=== PATIENT | female | born 1945 | race Caucasian/White ===

== ENCOUNTER 2023-03-14 12:51 | Outpatient (RCR) | payer MEDICARE, OTHER, SELFPAY | END 2023-04-22 15:36 | disposition home or self-care (01) | LOC: HO.WCC 12:51 | PROVIDERS: PCP Internal Medicine; Referring Provider Podiatrist; Visit Provider Surgery | DX: Z09 Encounter for follow-up examination after completed treatment for conditions other than malignant neoplasm (principal); E11.9 Type 2 diabetes mellitus without complications; Z79.899 Other long term (current) drug therapy; Z86.31 Personal history of diabetic foot ulcer | CPT/HCPCS: 97597; 99212 ==

== ENCOUNTER 2023-05-30 10:51 | Outpatient (REF) | payer MEDICARE, OTHER, SELFPAY | END 2023-05-30 10:52 | disposition home or self-care (01) | LOC: HO.10HDL 10:51 | PROVIDERS: Visit Provider Otolaryngology | DX: L50.0 Allergic urticaria (principal) | CPT/HCPCS: 36415; 82785; 86003 ==

== ENCOUNTER 2025-04-29 09:00 | Outpatient (RCR) | payer MEDICARE, OTHER, SELFPAY | END 2025-04-29 16:32 | disposition home or self-care (01) | LOC: HO.WCC 09:00 | PROVIDERS: PCP Internal Medicine; Visit Provider Surgery Surgical Oncology | DX: E11.622 Type 2 diabetes mellitus with other skin ulcer (principal); L97.822 Non-pressure chronic ulcer of other part of left lower leg with fat layer exposed; C44.719 Basal cell carcinoma of skin of left lower limb, including hip; T81.89XA Other complications of procedures, not elsewhere classified, initial encounter; E11.22 Type 2 diabetes mellitus with diabetic chronic kidney disease; I13.0 Hypertensive heart and chronic kidney disease with heart failure and stage 1 through stage 4 chronic kidney disease, or unspecified chronic kidney disease; I50.9 Heart failure, unspecified; N18.9 Chronic kidney disease, unspecified; Z79.84 Long term (current) use of oral hypoglycemic drugs; Z86.718 Personal history of other venous thrombosis and embolism | CPT/HCPCS: 99213 ==

== ENCOUNTER 2025-07-14 08:46 | Outpatient (AMB) | payer MEDICARE, OTHER, SELFPAY ==
--- OUTSIDE RECORDS SUMMARY | 2024-05-07 04:00 | XMS_ITS ---
Author Organization [facility] Address [address] [place] [address] Care Team Providers Care Cheesemaker Name Role Phone Glen RIVERO, Sheyla Primary Care Provider Unavailabl Eris Arredondo Unavailable [phone] Encounters Encounter Location Date Provider Diagnosis [facility] [address] [place] [address] 05/07/2024 Eris Zhu Plan Of Treatment Next Appt Details Provider Name:Eris Zhu , 05/18/2026 08:30:00 AM, [address] [address], [place], [address], Progress Notes * Angela KIMDOB:[birth year] (80 yo F)Acc No.[id number]:05/07/2024 Progress Note Patient: Angela JUAREZ Provider: Silvio Zhu DPM :1945 A ge:78 Y S ex:Female Date:05/07/2024 Address:[address] [place] [address] [place], [place] [id number] Pcp:Sheyla Carroll MD Subjective: * Chief Complaints: * * Medical History: Objective: * Vitals: Assessment: Plan: * Treatment: * Images: * The named appointment provid er may or may not be the originator of this progress note, and it is not deemed complete until electronically signed by the appointment provider. Sign off status: Pending * Provider: Silvio Zhu DPM Date: 1 Generated for Trudy hobbs/Dov/Delfina on: 1 09/14/2024 09:15 AM EST
--- OUTSIDE RECORDS SUMMARY | 2024-10-27 05:15 | XMS_ITS ---
Author Organization [facility] Address [address] [place] [address] Care Team Providers Care Mine Inspector Federal Name Role Phone Glen RIVERO, Sheyla Primary Care Provider Unavailabl Eris Arredondo Unavailable [phone] REASON FOR VISIT seen sooner Encounters Encounter Location Date Provider Diagnosis [facility] [address] [place] [address] 10/27/2024 Eris Zhu Plan Of Treatment Next Appt Details Provider Name:Eris Zhu , 05/18/2026 08:30:00 AM, [address] [facility], [address] [facility], [place], [address], Progress Notes * Angela DURANDOB:[birth year] (80 yo F)Acc No.[id number]:10/27/2024 Progress Note Patient: Angela JUAREZ Provider: Silvio Zhu DPM :1945 A ge:79 Y S ex:Female Date:10/27/2024 Address:[address] [place], [place] [id number] Pcp:Sheyla Carroll MD Subjective: * Chief Complaints: * 1 . Seen sooner. * Medical History: Objective: * Vitals: Assessment: Plan: * Treatment: * Images: * The named appointment provid er may or may not be the originator of this progress note, and it is not deemed complete until electronically signed by the appointment provider. Sign off status: Pending * Provider: Silvio Zhu DPM Date: 0 10/27/2024 Generated for Trudy hobbs/Stacy on: 1 09/14/2024 09:16 AM EST
--- NOTE | 2025-07-14 08:53 | A.OFFVIS_ITS ---
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 Assess patient education level/literacy/barriers, patient referred to Diabetes Education from PCP at [facility]. Patient reports last A1c approximately month ago was 7.3% Current medications Rybelsus 14 mg daily Glimepiride 1 mg b.i.d. Farxiga 1 mg daily Patient has been testing glucose once a day, fasting range 99 to 137 mg/dL Patient questions/concerns, reports she has been experiencing diaphoresis, and dizziness. When she has checked glucose after experiencing these symptoms reports that glucose is within normal range. Reports that sometimes she goes more than 6 hours without eating a meal. Does notice if she eats or has candy when experiencing the symptoms they alleviate She uses ReliOn meter, reports she has several meters. At today's visit set up sample freestyle Keya 3 sensor CGM is the reading of glucose in the interstitial fluid not actual blood glucose, finger sticks are still necessary when Pt's symptom?s do not match sensor reading and if sensors prompts Pt to do a fingerstick Instructed patient sensors water proof you can shower, or swim do not submerge sensor in water for over 30 minutes Is sensor falls off cannot put back in you need to replace sensor, customer service number given to patient for sensor replacement Sensor placed on the back of left arm Patient left visit with sensor in warmup Reviewed how to interpret trend arrows Discussed lag time between finger stick and sensor data.? Instructed patient the importance of having blood glucometer for backup testing if needed Reviewed delay of CGM from fingersticks Reminded Pt that if symptoms do not match sensor still needs to check fingersticks. The patient met all learning objectives and was able to verbalize understanding and provide teach back of education topics discussed . The patient was provided with the opportunity to ask questions and all questions were answered. Topics covered in today?s session included: Medications (If applicable) * Name of medication? * Dosing/administration instructions? * Mechanism of action? * Potential side effects? * Potential adverse reaction and appropriate treatment? * Review onset, peak, duration Assess for concerns re: insurance coverage, cost, barriers to compliance Hypoglycemia * Signs and symptoms? * Causes?? * Treatment? * Preventing hypoglycemia? * When to seek medical attention Target Goals: * Blood glucose targets and how you feel when your blood glucose is in and out of your target ranges. * Monitoring and knowing your A1C. * What can make blood glucose go up and down and preventing high and low blood glucose. * Review of blood sugar targets in expected goal range and outside of expected goal range. * Problem solving and preventing hyper/hypoglycemia. * Using blood sugar results in decision making process in managing diabetes. ?Patient was receptive to information provided and participated in the discussion. Asked?appropriate questions and demonstrated good understanding of the topics discussed.? ? Educational Materials: The patient was provided with the following written educational materials: Target Goal handout Smart Goal:? Patient will note Glucose if experiencing symptoms of of dizziness and diaphoresis Patient Response to instructions: Comprehension of Instructions: Good Readiness to make changes:? Contemplation How confident they feel about making changes: Positive Portions of this note were created using voice recognition software, please excuse any words or phrases that may have been misinterpreted. Patient Instructions: Patient instruction: CGM provides information on blood glucose control throughout the day, including hyperglycemia and hypoglycemia. ? Continue to monitor blood glucose as instructed. Follow nutrition guidelines provided. Report any discomfort promptly to health care provider. ?Stay well-hydrated. You can bathe ,shower, swim and exercise while wearing the glucose sensor. Do not submerge glucose sensor in water for more than 30 minutes. Coding Level of Care Code Est Pt Level 1 (71888) Diagnoses Diabetes mellitus E11.9
--- OUTSIDE RECORDS SUMMARY | 2025-07-14 09:15 | XMS_ITS | Patient Health Record ---
Author Organization [facility] Raiza magallanes Billing Info Address [address] [place] [address] Phone [phone] Support Name Relationship Address Phone Angela Kim Self - patient is th e insured [address] [place] [address] [phone] Reason For Referral No Information Medications Medication SIG (Take, Route, Frequency, Duration) Notes Start Date End Date Diagnosis (ICD Code) Status Triamterene-HCTZ 37.5-25 MG take 1 capsule by ORAL route every day 08/17/2010 Active Prilosec 20 MG take 1 capsule (20MG) by ORAL route every day before a meal 08/17/2010 Active Lisinopril 40 MG take 1 tablet (40MG) by ORAL route every day 08/17/2010 Active Red Yeast Rice 600 MG take 2 capsules daily 08/17/2010 Active Social History Sex Observation Social History Observation Description Sex Observation Female Social History Social History Social Info Question Answer Notes Tobacco Status: Patient is a never smoker Illicit Drug Use: Patient/Family reports: No illicit d rug use Alcohol Use: Patient does not use alcohol Living Environment: Reported as: House/Condo/Apartment Problems Problem Type SNOMED Code ICD Code Dates Problem Status W/U Status Risk Notes Problem Hyperlipidemia (44288603) Other and unspecified hyperlipidemia (272.4) Onset Date: 08/17/19 11 Active confirmed Problem Benign essential hypertension (2028915) Essential hypertension, benign (401.1) Onset Date: 08/17/19 11 Active confirmed Problem Rheumatoid arthritis (31135983) Rheumatoid arthritis (714.0) Onset Date: 08/17/19 11 Active confirmed Problem Osteoarthritis (879987610) Osteoarthrosis, unspecified whether generalized or localized, unspecified site (715.90) Onset Date: 08/17/19 11 Active confirmed Plan Of Treatment No Information Medical (General) History Surgical History Surgery Date(Month/Year) bladder surgery ; 1994 gastrointestinal: Appendectomy ; gastrointestinal: Colonic polyps removed ; 2004 women's health: dilation and curettage ;
--- OUTSIDE RECORDS SUMMARY | 2025-07-14 09:15 | XMS_ITS | Patient Health Record ---
[facility] Address [address] [place] [address] Care Team Providers Care Double Needle Stitcher Name Role Phone Sheyla Carroll MD Primary Care Provider Eris Otero Unavailable [phone] Godwin Garg Unavailable [phone] Allergies Allergen (clinical drug ingredient) Drug/Non Drug Allergy documented on EMR Reaction Allergy Type Onset Date Status liraglutide Victoza Unknown Drug Allergy Activ e Results Component Value Reference Range Notes HEMOGLOBIN A1C (GLYCOHEMOGLO BIN) Reviewed date:10/23/2024 08:48:26 AM Interpretation: Performing Lab: Notes/Report: HEMOGLOBIN A1C % (HH) 7.1 HEMOGLOBIN A1C (GLYCOHEMOGLO BIN) Reviewed date:05/12/2025 12:45:35 PM Interpretation: Performing Lab: Notes/Report: HEMOGLOBIN A1C % (HH) 7.5 HEMOGLOBIN A1C (GLYCOHEMOGLO BIN) Reviewed date:05/12/2025 12:43:03 PM Interpretation: Performing Lab: Notes/Report: HEMOGLOBIN A1C % (HH) 7.5 Reason For Referral No Information Medications Medication SIG (Take, Route, Frequency, Duration) Notes Start Date End Date Status Lisinopril 5 MG 2 tablets Orally Onc e a day Active Spironolactone 25 MG 1 tablet Orally Active oxyBUTYnin Chloride ER 10 MG 1 tablet Orally Once a day; Duration: 30 day(s) Active Omeprazole 40 MG 1 capsule 30 minutes before morning meal Orally Once a day; Duration: 30 day(s) Active Metoprolol Succinate ER 50 MG Oral; Duration: 90 Days Acti ve Metoprolol Tartrate 25 MG 1 tablet with food Orally Twice a day; Duration: 30 day(s) Active Nitrofurantoin Monohyd Macro 100 MG Oral; Duration: 5 Days Activ e Farxiga 10 MG 1 tablet Orally Once a day; Duration: 30 day(s) Active Cephalexin 500 MG 1 capsule Orally sasha ry 8 hrs; Duration: 10 days Not-Taking Colcrys 0.6 MG 1 tablet Orally Up t o Four times a day; Duration: 5 days 10/23/2024 Active Rosuvastatin Calcium 20 MG 1 tablet Orally Once a day; Duration: 30 day(s) Active Extra Depth Orthopedic Shoes (1 Pair) with Customized Heat Molded Multidensity Innersoles (3 Pair) as directed Dx: NIDDM (E11.9), Hammertoe Foot Deformity (M20.41,M20.42), Preulcerative Skin Lesion(s) (L85.1) Active ZyrTEC Active Ferrex 150 iron Active Mupirocin 2 % 1 application Externally Twice a day Active metFORMIN HCl 500 MG 1 tablet with a rosa l Orally Once a day Not-Taking Eliquis 5 MG as directed Orally Active Triamterene-HCTZ 37.5-25 MG 1 tablet in the morning Orally Once a day; Duration: 30 day(s) Not-Taking Albuterol Sulfate Ac tive Calcium Not-Taking amLODIPine Besylate 5 MG 1 tablet Orally Once a day; Duration: 30 day(s) Active Medrol rkistopher 4mg as directed orally a s directed; Duration: 6 days 10/23/2024 Active Ammonium Lactate 12 % 1 application Externally to affected areas of skin to feet except for between the toes Twice a day; Duration: 30 days Active Nateglinide Not-Taki ng Immunizations Vaccine Route Administration Date Status Comme nts Influenza Unknown 03/29/2022 Administered Influenza Unknown 04/28/2025 Administered Social History Tobacco Use: Social History Observation Description Date Details (start date - stop date) Never Smoker NA - NA Tobacco use other than smoking: Question Answer Notes Are you an other tobacco user? No Tobacco Control (Standard) Question Answer Notes Tobacco use: Nonsmoker Additional Findings: Tobacco non-user Current no nsmoker AUDIT-C (Standard) Question Answer Notes Did you have a drink containing alcohol in the p ast year? No Points 0 Interpretation Negative Problems Problem Type SNOMED Code ICD Code Onset Dates Problem Status W/U Status Risk Notes Problem Acquired hammer toe of right foot (621955078558342 5) Other hammer toe(s) (acquired), right foot (M20.41) Active confirmed Problem Acquired hammer toe of left foot (263367531412553 3) Other hammer toe(s) (acquired), left foot (M20.42) Active confirmed Problem Xerosis cutis (74689572) Xerosis of skin (L85.3) Active confirmed Problem Type II diabetes mellitus without complication (131567911) Type 2 diabetes mellitus without complication (E11.9) Active confirmed Vital Signs Blood pressure diastolic 80 mm Hg 05/12/2025 Height 5 ft 5in in 05/12/2025 Blood pressure systolic 127 mm Hg 05/12/2025 Weight 203 lbs 05/12/2025 BMI 33.78 kg/m2 05/12/2025 Encounters Encounter Location Date [facility] [address] [place] [address] 10/23/2024 Eris Marko Pain in left ankle and joints of left foot M25.572 ; Acute idiopathic gout of left foot M10.072 and Type 2 diabetes mellitus without complication E11.9 [facility] [address] 05/12/2025 Godwin Garg Other hammer toe(s) (acquired), right foot M20.41 ; Other hammer toe(s) (acquired), left foot M20.42 ; Type 2 diabetes mellitus without complication E11.9 and Xerosis of skin L85.3 Assessments Encounter Date Diagnosis (ICD Code) Assessment Notes Treatment Notes Treatment Clinical Notes Section Notes 10/23/2024 Pain in left ankle and joints of left foot (ICD-10 - M25.572) 05/12/2025 Other hammer toe(s) (acquired), right foot (ICD-10 - M20.41) Patient Educated with: DIABETIC FOOT CARE INSTRUCTIONS.p df (DIABETIC FOOT CARE INSTRUCTIONS.p df) 05/12/2025 Other hammer toe(s) (acquired), left foot (ICD-10 - M20.42) 10/23/2024 Acute idiopathic gout of left foot (ICD-10 - M10.072) Patient Educated with: GOUT.pdf (GOUT.pdf) Patient Educated with: LOW PURINE DIET.pdf (LOW PURINE DIET.pdf) 05/12/2025 Type 2 diabetes mellitus without complication (ICD-10 - E11.9) 10/23/2024 Type 2 diabetes mellitus without complication (ICD-10 - E11.9) 05/12/2025 Xerosis of skin (ICD-10 - L85.3) Plan Of Treatment Pending Test Test Name Order Date X ray : Foot, left 3V 03/12/2023 X ray : Foot, left 3V 10/23/2024 Next Appt Details Provider Name:Eris Zhu , 05/18/2026 08:30:00 AM, [address] [facility], [address], [place], [address], Insurance Providers Payer Name Payer Address Payer Phone Subscriber Number Group Number Insured Name Patient Relationship to Insured Coverage Start Date Coverage End Date Medicare National [employer] [address] [place] [address] [phone] [id number] Angela Lewis Self - patient is the insured [employer] [address] [place] [address] [id number] Angela Lewis Self - patient is the insured [facility] Office of Community Care [address] [address] [place] [phone] [id number] Angela Lewis Self - patient is the insured Medical (General) History Medical History History ICD Code Anemia Anxiety Arthritis asthma Back,Hip,and Knee pain Broken bones CAD (Cholesterol) Cataracts Diabetic Diverticulitis Headaches/Migraines Heart disease High blood pressure Kidney disease Reflux ( GERD) Stomach ulcer Measles Chicken pox Joint implants/screws Transfusions Congestive heart failure Surgical History Surgery Date(Month/Year) bladder surgery left knee replacement right knee replacement cataract surgery appendectomy Hospitalization History Reason Date(Month/Year) [facility]- CHF 2023 [facility]- iv potassium 2023
== END 2025-07-14 09:29 | disposition home or self-care (01) ==
LOC: HO.ENCR 08:46
PROVIDERS: PCP Internal Medicine; Visit Provider Registered Nurse Diabetes Educator
DX: E11.9 Type 2 diabetes mellitus without complications (principal)

== ENCOUNTER → 2025-07-14 08:46 | Outpatient (BNVA) | payer MEDICARE, OTHER, SELFPAY | PROVIDERS: PCP Internal Medicine; Visit Provider Registered Nurse Diabetes Educator | DX: E11.9 Type 2 diabetes mellitus without complications (principal) | CPT/HCPCS: 99211 ==